=== PATIENT | female | born 1945 | race Caucasian/White ===

== ENCOUNTER 2022-12-02 12:44 | Inpatient (IN) | payer OTHER, MEDICARE ==
[2022-12-02] MEDS ORDERED: ONDANSETRON 4 MG/2 ML VIAL IVPUSH ONE (13:33)
[2022-12-02] MEDS ORDERED: ACETAMINOPHEN 1000 MG/100 ML BAG IVPB ONE (13:33)
[2022-12-02] MEDS ORDERED: LACTATED RINGERS SOLUTION 1000 ML INFUS.BAG IV ONE (13:33)
[2022-12-02] MEDS ORDERED: FAMOTIDINE 20 MG/50 ML IVPB 20 MG/50 ML MG IVPB ONE ×2 (13:34→14:07)
[2022-12-02] MEDS ORDERED: ACETAMINOPHEN INJECTION 100 ML IVPB ONE (14:06)
[2022-12-02] MEDS ORDERED: ONDANSETRON 4 MG/2 ML VIAL ONE (14:06)
[2022-12-02 14:43] LABS: BASO % 0.2 % (0-2.0); EOS % 0.3 % (0-4.5); HEMATOCRIT 37.9 % (32.4-45.2); HEMOGLOBIN 12.8 GM/dL (10.7-15.3); LYMPH % 13.3 % (8-40); MCH 26.6 pg (25.7-33.7); MCHC 33.7 g/dl (32.0-36.0); MEAN CELL VOLUME 78.9 fl (80-96); MEAN PLT VOLUME 8.1 fl (7.5-11.1); MONO % 8.2 % (3.8-10.2); PLATELET COUNT 236 10^3/uL (134-434); RBC 4.81 M/mm3 (3.60-5.2); RDW 15.4 % (11.6-15.6); WHITE BLOOD COUNT 16.5 K/mm3 (4.0-10.0)
[2022-12-02 15:03] LABS: CHLORIDE 80 mmol/L (98-107); POTASSIUM 3.3 mmol/L (3.5-5.1)
[2022-12-02 15:05] LABS: ALBUMIN 3.8 g/dl (3.4-5.0); CALCIUM 8.9 mg/dL (8.5-10.1)
[2022-12-02 15:06] LABS: BLOOD UREA NITROGEN 9.8 mg/dL (7-18); CO2 25 mmol/L (21-32); GLUCOSE,RANDOM 151 mg/dL (74-106); LIPASE 100 U/L (73-393)
[2022-12-02 15:08] LABS: SGPT/ALT 31 U/L (13-61)
[2022-12-02 15:09] LABS: CREATININE 0.6 mg/dL (0.55-1.3); SGOT/AST 24 U/L (15-37)
[2022-12-02 15:10] LABS: BILIRUBIN,TOTAL 1.3 mg/dL (0.2-1); TOT PROT 6.9 g/dl (6.4-8.2)
[2022-12-02 15:11] LABS: ALK PHOS 63 U/L (45-117); ANION GAP 14 MMOL/L (8-16); SODIUM 119 mmol/L (136-145)
[2022-12-02] MEDS ORDERED: HALOPERIDOL LACTATE 5 MG/ML IM ONE ×2 (15:50→16:01)
[2022-12-02 18:32] LABS: CHLORIDE 78 mmol/L (98-107)
[2022-12-02 18:33] LABS: CALCIUM 9.1 mg/dL (8.5-10.1)
[2022-12-02 18:34] LABS: BLOOD UREA NITROGEN 7.4 mg/dL (7-18); CO2 26 mmol/L (21-32); GLUCOSE,RANDOM 128 mg/dL (74-106)
[2022-12-02 18:37] LABS: CREATININE 0.6 mg/dL (0.55-1.3)
[2022-12-02 18:40] LABS: ANION GAP 14 MMOL/L (8-16); POTASSIUM 2.9 mmol/L (3.5-5.1); SODIUM 118 mmol/L (136-145)
[2022-12-02] MEDS ORDERED: SODIUM CHLORIDE 3% 500 ML/500 ML INFUS.BAG IV ONE (18:42)
[2022-12-02] MEDS ORDERED: SODIUM CHLORIDE 0.9% 500 ML INFUS.BAG IV ONE (19:08)
[2022-12-02] MEDS ORDERED: KCL 10 MEQ IVPB 10 MEQ/100 ML INFUS.BAG IVPB ONE (19:31)
[2022-12-02 20:01] LABS: MAGNESIUM 1.5 mg/dL (1.8-2.4)
[2022-12-02] MEDS ORDERED: MAGNESIUM SULF 50% (8.12 MEQ/2 ML-1 GM VIAL) IVPB ONE (20:02)
[2022-12-02] MEDS ORDERED: ACETAMINOPHEN 325 MG TABLET (FP) PO PRN (20:33)
[2022-12-02] MEDS ORDERED: HALOPERIDOL LACTATE 5 MG/ML IM PRN ×2 (21:02→22:34)
[2022-12-02] MEDS ORDERED: MAGNESIUM SULFATE IN WATER 2 GM/50 ML IVPB IVPB ONE (21:02)
[2022-12-02] MEDS ORDERED: hydrALAZINE HCL 20 MG/ML VIAL IVPUSH PRN (22:38)
[2022-12-02] MEDS: KCL 10 MEQ IVPB 10 MEQ/100 ML INFUS.BAG IVPB SCH (22:42)
[2022-12-02] MEDS: INSULIN SLIDING SCALE (NOVOLOG) 1 VIAL SQ SCH (23:08)
[2022-12-03] MEDS: KCL 10 MEQ IVPB 10 MEQ/100 ML INFUS.BAG IVPB SCH ×2 (00:38→03:38)
[2022-12-03] MEDS ORDERED: KCL 10 MEQ IVPB 10 MEQ/100 ML INFUS.BAG IVPB ONE ×2 (00:42→03:36)
[2022-12-03 04:04] LABS: EPI CELLS 10 /uL (0-25.1); HYALINE CASTS 0 /uL (0-3.1); PH,URINE 7.5 (5.0-8.0); URINE APPEARANCE CLEAR; URINE BACTERIA 10 /uL (0-1359); URINE BILIRUBIN NEGATIVE (NEGATIVE); URINE COLOR YELLOW; URINE GLUCOSE (UA) NEGATIVE (NEGATIVE); URINE KETONE 1+ (NEGATIVE); URINE LEUK ESTERASE NEGATIVE (NEGATIVE); URINE NITRITE NEGATIVE (NEGATIVE); URINE PROTEIN 2+ (NEGATIVE); URINE RBC 26 /uL (0-23.9); URINE UROBILINOGEN 0.2 mg/dL (0.2-1.0); URINE WBC 6 /uL (0-25.8)
[2022-12-03 06:02] VITALS: BMI 24.0
[2022-12-03 06:49] LABS: BASO % 0.2 % (0-2.0); EOS % 0.1 % (0-4.5); HEMATOCRIT 41.4 % (32.4-45.2); HEMOGLOBIN 14.5 GM/dL (10.7-15.3); LYMPH % 14.6 % (8-40); MCH 27.4 pg (25.7-33.7); MEAN CELL VOLUME 78.3 fl (80-96); MEAN PLT VOLUME 8.4 fl (7.5-11.1); MONO % 8.7 % (3.8-10.2); NEUT % 76.4 % (42.8-82.8); PLATELET COUNT 262 10^3/uL (134-434); RBC 5.28 M/mm3 (3.60-5.2); RDW 15.3 % (11.6-15.6); WHITE BLOOD COUNT 14.3 K/mm3 (4.0-10.0)
[2022-12-03] MEDS: INSULIN SLIDING SCALE (NOVOLOG) 1 VIAL SQ SCH ×4 (07:01→23:12)
[2022-12-03 07:11] LABS: POTASSIUM 3.5 mmol/L (3.5-5.1)
[2022-12-03 07:13] LABS: CALCIUM 9.2 mg/dL (8.5-10.1)
[2022-12-03 07:14] LABS: BLOOD UREA NITROGEN 5.8 mg/dL (7-18)
[2022-12-03 07:17] LABS: CREATININE 0.6 mg/dL (0.55-1.3); PHOSPHOROUS 2.6 mg/dL (2.5-4.9)
[2022-12-03 07:19] LABS: BILIRUBIN,TOTAL 1.8 mg/dL (0.2-1); TOT PROT 7.2 g/dl (6.4-8.2)
[2022-12-03] MEDS: POTASSIUM CHLORIDE 40 MEQ in SODIUM CHLORIDE 1,000 ML IV SCH ×2 (08:17→08:20)
[2022-12-03] MEDS: predniSONE 10 MG TABLET (UD) PO SCH (09:29)
[2022-12-03] MEDS: ENOXAPARIN NA (PORCINE) 40 MG/0.4 ML DISP.SYRIN SQ SCH (09:29)
[2022-12-03] MEDS ORDERED: D5-NS + 20 MEQ KCL - 20 MEQ/1,000 ML INFUS.BAG IV SCH (13:45)
[2022-12-03 16:02] LABS: BLOOD UREA NITROGEN 6.3 mg/dL (7-18); CALCIUM 8.9 mg/dL (8.5-10.1)
[2022-12-03 16:06] LABS: CREATININE 0.6 mg/dL (0.55-1.3)
[2022-12-03 20:19] LABS: POTASSIUM 4.2 mmol/L (3.5-5.1)
[2022-12-03 20:22] LABS: CALCIUM 8.5 mg/dL (8.5-10.1)
[2022-12-03 20:23] LABS: BLOOD UREA NITROGEN 6.7 mg/dL (7-18)
[2022-12-03 20:25] LABS: CREATININE 0.7 mg/dL (0.55-1.3)
[2022-12-03] MEDS ORDERED: ROSUVASTATIN CA 10 MG TABLET PO SCH (22:00)
[2022-12-03] MEDS ORDERED: EZETIMIBE 10 MG TABLET (FP) PO SCH (22:00)
[2022-12-03] MEDS: amLODIPine BESYLATE 2.5 MG TABLET (FP) PO SCH (23:05)
[2022-12-04] MEDS: INSULIN SLIDING SCALE (NOVOLOG) 1 VIAL SQ SCH ×4 (07:10→22:06)
[2022-12-04] MEDS ORDERED: INSULIN (LEVEMIR) 100 UNITS/ML UNITS SQ ONE (07:25)
[2022-12-04] MEDS ORDERED: INSULIN (NOVOLOG) ASPART 100 UNITS/ML 10ML VIAL ONE ×2 (07:25→17:05)
[2022-12-04 08:50] LABS: BASO % 0.3 % (0-2.0); EOS % 0.4 % (0-4.5); HEMATOCRIT 42.5 % (32.4-45.2); HEMOGLOBIN 14.7 GM/dL (10.7-15.3); LYMPH % 38.3 % (8-40); MCH 27.6 pg (25.7-33.7); MCHC 34.7 g/dl (32.0-36.0); MEAN CELL VOLUME 79.5 fl (80-96); MEAN PLT VOLUME 7.9 fl (7.5-11.1); MONO % 11.1 % (3.8-10.2); NEUT % 49.9 % (42.8-82.8); PLATELET COUNT 254 10^3/uL (134-434); RBC 5.34 M/mm3 (3.60-5.2); RDW 16.1 % (11.6-15.6); WHITE BLOOD COUNT 10.1 K/mm3 (4.0-10.0)
[2022-12-04 09:04] LABS: BLOOD UREA NITROGEN 9.3 mg/dL (7-18)
[2022-12-04 09:06] LABS: PHOSPHOROUS 2.9 mg/dL (2.5-4.9)
[2022-12-04 09:07] LABS: CREATININE 0.7 mg/dL (0.55-1.3)
[2022-12-04 09:39] LABS: ALBUMIN 3.6 g/dl (3.4-5.0); CALCIUM 8.8 mg/dL (8.5-10.1); MAGNESIUM 2.4 mg/dL (1.8-2.4)
[2022-12-04 09:42] LABS: CREATININE 0.8 mg/dL (0.55-1.3)
[2022-12-04 09:44] LABS: BILIRUBIN,TOTAL 1.8 mg/dL (0.2-1); TOT PROT 6.8 g/dl (6.4-8.2)
[2022-12-04] MEDS: ENOXAPARIN NA (PORCINE) 40 MG/0.4 ML DISP.SYRIN SQ SCH (09:49)
[2022-12-04] MEDS: predniSONE 10 MG TABLET (UD) PO SCH ×2 (09:49→09:52)
[2022-12-04] MEDS ORDERED: DEXTROSE 5%-WATER - 1,000 ML with POTASSIUM CHLORIDE 10 MEQ IV SCH (12:00)
[2022-12-04 17:17] LABS: POTASSIUM 4.1 mmol/L (3.5-5.1)
[2022-12-04 17:18] LABS: BLOOD UREA NITROGEN 10.9 mg/dL (7-18); CALCIUM 8.7 mg/dL (8.5-10.1)
[2022-12-04 17:22] LABS: CREATININE 0.8 mg/dL (0.55-1.3)
[2022-12-04] MEDS: amLODIPine BESYLATE 2.5 MG TABLET (FP) PO SCH (22:03)
[2022-12-05] MEDS: INSULIN SLIDING SCALE (NOVOLOG) 1 VIAL SQ SCH ×4 (06:28→22:02)
[2022-12-05 07:08] LABS: BASO % 0.4 % (0-2.0); EOS % 0.3 % (0-4.5); HEMOGLOBIN 13.9 GM/dL (10.7-15.3); LYMPH % 20.4 % (8-40); MCH 27.7 pg (25.7-33.7); MEAN CELL VOLUME 81.4 fl (80-96); MONO % 11.1 % (3.8-10.2); NEUT % 67.8 % (42.8-82.8); PLATELET COUNT 207 10^3/uL (134-434); RBC 5.04 M/mm3 (3.60-5.2); RDW 16.1 % (11.6-15.6); WHITE BLOOD COUNT 8.9 K/mm3 (4.0-10.0)
[2022-12-05 07:22] LABS: POTASSIUM 3.7 mmol/L (3.5-5.1)
[2022-12-05 07:25] LABS: BLOOD UREA NITROGEN 11.9 mg/dL (7-18); CALCIUM 8.5 mg/dL (8.5-10.1)
[2022-12-05 07:26] LABS: ALBUMIN 3.4 g/dl (3.4-5.0); MAGNESIUM 1.9 mg/dL (1.8-2.4)
[2022-12-05 07:28] LABS: PHOSPHOROUS 2.2 mg/dL (2.5-4.9)
[2022-12-05 07:29] LABS: CREATININE 0.7 mg/dL (0.55-1.3)
[2022-12-05 07:30] LABS: BILIRUBIN,TOTAL 1.6 mg/dL (0.2-1); TOT PROT 6.4 g/dl (6.4-8.2)
[2022-12-05] MEDS: predniSONE 10 MG TABLET (UD) PO SCH (09:35)
[2022-12-05] MEDS: ENOXAPARIN NA (PORCINE) 40 MG/0.4 ML DISP.SYRIN SQ SCH (09:37)
[2022-12-05 13:27] LABS: POTASSIUM 3.9 mmol/L (3.5-5.1)
[2022-12-05 13:29] LABS: CALCIUM 9.1 mg/dL (8.5-10.1)
[2022-12-05 13:30] LABS: BLOOD UREA NITROGEN 12.1 mg/dL (7-18)
[2022-12-05 13:34] LABS: CREATININE 0.7 mg/dL (0.55-1.3)
[2022-12-05] MEDS ORDERED: POLYETHYLENE GLYCOL (HEALTHYLAX) 3350 17 GM PACKET PO SCH (14:15)
[2022-12-05] MEDS ORDERED: INSULIN (NOVOLOG) ASPART 100 UNITS/ML 10ML VIAL ONE (16:45)
[2022-12-05 18:50] VITALS: RESP 18
[2022-12-05] MEDS: POLYETHYLENE GLYCOL (HEALTHYLAX) 3350 17 GM PACKET PO SCH (21:55)
[2022-12-05] MEDS: amLODIPine BESYLATE 2.5 MG TABLET (FP) PO SCH (21:55)
[2022-12-06] MEDS: INSULIN SLIDING SCALE (NOVOLOG) 1 VIAL SQ SCH ×3 (06:27→17:14)
[2022-12-06 08:12] LABS: BASO % 0.4 % (0-2.0); EOS % 1.1 % (0-4.5); HEMATOCRIT 39.8 % (32.4-45.2); HEMOGLOBIN 13.5 GM/dL (10.7-15.3); LYMPH % 24.2 % (8-40); MCH 27.4 pg (25.7-33.7); MCHC 33.8 g/dl (32.0-36.0); MEAN CELL VOLUME 81.2 fl (80-96); MEAN PLT VOLUME 8.2 fl (7.5-11.1); MONO % 10.5 % (3.8-10.2); NEUT % 63.8 % (42.8-82.8); PLATELET COUNT 189 10^3/uL (134-434); WHITE BLOOD COUNT 10.6 K/mm3 (4.0-10.0)
[2022-12-06 08:23] LABS: POTASSIUM 3.8 mmol/L (3.5-5.1)
[2022-12-06 08:32] LABS: CALCIUM 8.8 mg/dL (8.5-10.1)
[2022-12-06 08:33] LABS: ALBUMIN 3.2 g/dl (3.4-5.0); BLOOD UREA NITROGEN 12.9 mg/dL (7-18); MAGNESIUM 2.1 mg/dL (1.8-2.4)
[2022-12-06 08:36] LABS: CREATININE 0.6 mg/dL (0.55-1.3); PHOSPHOROUS 2.8 mg/dL (2.5-4.9)
[2022-12-06 08:38] LABS: BILIRUBIN,TOTAL 0.8 mg/dL (0.2-1); TOT PROT 6.2 g/dl (6.4-8.2)
[2022-12-06] MEDS: POLYETHYLENE GLYCOL (HEALTHYLAX) 3350 17 GM PACKET PO SCH (10:21)
[2022-12-06] MEDS: ENOXAPARIN NA (PORCINE) 40 MG/0.4 ML DISP.SYRIN SQ SCH (10:21)
[2022-12-06] MEDS: predniSONE 10 MG TABLET (UD) PO SCH (10:21)
[2022-12-06 14:54] VITALS: BP 131/63; PULSE 70; TEMP 97.7
== END 2022-12-06 18:24 | disposition home health service (06) | DRG 640 ==
LOC: JER 12:44 → JERBED 19:20 → J4W 12-03 04:47
PROVIDERS: ADMIT Internal Medicine; ATTEND Internal Medicine
DX: E87.1 Hypo-osmolality and hyponatremia (principal); G93.41 Metabolic encephalopathy; J98.11 Atelectasis; E78.5 Hyperlipidemia, unspecified; E11.40 Type 2 diabetes mellitus with diabetic neuropathy, unspecified; I45.10 Unspecified right bundle-branch block; R11.2 Nausea with vomiting, unspecified; E87.6 Hypokalemia; K57.90 Diverticulosis of intestine, part unspecified, without perforation or abscess without bleeding; E83.42 Hypomagnesemia; D72.829 Elevated white blood cell count, unspecified; M19.09 Primary osteoarthritis, other specified site; I25.10 Atherosclerotic heart disease of native coronary artery without angina pectoris; R33.9 Retention of urine, unspecified; E86.0 Dehydration; M35.3 Polymyalgia rheumatica; I10 Essential (primary) hypertension; E80.6 Other disorders of bilirubin metabolism; Z95.1 Presence of aortocoronary bypass graft
CPT/HCPCS: 36415; 70450-TC; 71045-TC-FY; 74177-TC; 76705-TC; 80048; 80053; 81003; 82436; 82533; 82570; 82962; 83036; 83605; 83690; 83735; 83930; 83935; 84100; 84156; 84300; 84439; 84443; 84484; 84540; 85025; 87086; 93005; 93010; 97116-GP; 97162-GP; 99285-25; Q9967

== ENCOUNTER 2023-06-02 15:09 | Inpatient (IN) | payer OTHER, MEDICARE ==
[2023-06-02 16:06] LABS: EOS % 0.5 % (0-4.5); HEMATOCRIT 34.5 % (32.4-45.2); HEMOGLOBIN 11.3 GM/dL (10.7-15.3); LYMPH % 20.3 % (8-40); MCHC 32.9 g/dl (32.0-36.0); MEAN CELL VOLUME 82.2 fl (80-96); MEAN PLT VOLUME 8.2 fl (7.5-11.1); MONO % 15.4 % (3.8-10.2); NEUT % 63.8 % (42.8-82.8); PLATELET COUNT 232 10^3/uL (134-434); RDW 14.7 % (11.6-15.6); WHITE BLOOD COUNT 10.6 K/mm3 (4.0-10.0)
[2023-06-02 16:11] LABS: VENOUS BASE EXCESS 1.8 mmol/L (-2-2); VENOUS O2 SATURATION 81.4 % (70-80); VENOUS PCO2 39.2 mmHg (38-52); VENOUS PH 7.439 (7.310-7.410)
[2023-06-02 16:24] LABS: CHLORIDE 101 mmol/L (98-107); POTASSIUM 3.6 mmol/L (3.5-5.1); SODIUM 136 mmol/L (136-145)
[2023-06-02 16:26] LABS: ALBUMIN 3.6 g/dl (3.4-5.0); ANION GAP 9 mmol/L (4-13); BLOOD UREA NITROGEN 16.4 mg/dL (7-18); CALCIUM 9.4 mg/dL (8.5-10.1); CO2 26 mmol/L (21-32); GLUCOSE,RANDOM 158 mg/dL (74-106)
[2023-06-02 16:29] LABS: CREATININE 0.6 mg/dL (0.55-1.3); SGOT/AST 33 U/L (15-37); SGPT/ALT 61 U/L (13-61)
[2023-06-02 16:31] LABS: BILIRUBIN,TOTAL 0.6 mg/dL (0.2-1); TOT PROT 6.9 g/dl (6.4-8.2)
[2023-06-02 16:32] LABS: ALK PHOS 60 U/L (45-117)
[2023-06-02 17:23] LABS: MAGNESIUM 1.9 mg/dL (1.8-2.4)
[2023-06-02 18:09] LABS: ARTERIAL BLD GAS O2 SATURATION 95.6 % (95-98); ARTERIAL BLOOD GAS BASE EXCESS 1.8 mmol/L (-2-2); ARTERIAL BLOOD GAS PO2 72.3 mmHg (80-100); ARTERIAL BLOOD GAS pH 7.475 (7.350-7.450)
[2023-06-02 18:17] LABS: ALLENS TEST POSITIVE
[2023-06-02 18:28] LABS: URINE APPEARANCE CLEAR; URINE BILIRUBIN NEGATIVE (NEGATIVE); URINE COLOR YELLOW; URINE GLUCOSE (UA) NEGATIVE (NEGATIVE); URINE KETONE NEGATIVE (NEGATIVE); URINE LEUK ESTERASE NEGATIVE (NEGATIVE); URINE NITRITE NEGATIVE (NEGATIVE); URINE PROTEIN NEGATIVE (NEGATIVE); URINE UROBILINOGEN 0.2 mg/dL (0.2-1.0)
[2023-06-02] MEDS: INSULIN ASPART SLIDING SCALE (NOVOLOG) 1 VIAL SQ SCH (21:13)
[2023-06-03] MEDS ORDERED: MECLIZINE HCL 25 MG TABLET (FP) PO PRN (01:24)
[2023-06-03 07:03] LABS: BASO % 0.7 % (0-2.0); EOS % 0.7 % (0-4.5); HEMATOCRIT 34.1 % (32.4-45.2); HEMOGLOBIN 11.3 GM/dL (10.7-15.3); LYMPH % 18.5 % (8-40); MCH 27.1 pg (25.7-33.7); MCHC 33.1 g/dl (32.0-36.0); MEAN CELL VOLUME 81.9 fl (80-96); MEAN PLT VOLUME 8.3 fl (7.5-11.1); MONO % 17.7 % (3.8-10.2); NEUT % 62.4 % (42.8-82.8); PLATELET COUNT 240 10^3/uL (134-434); RBC 4.17 M/mm3 (3.60-5.2); RDW 14.9 % (11.6-15.6); WHITE BLOOD COUNT 11.3 K/mm3 (4.0-10.0)
[2023-06-03 08:05] LABS: ALBUMIN 3.4 g/dl (3.4-5.0); BILIRUBIN,TOTAL 0.7 mg/dL (0.2-1); BLOOD UREA NITROGEN 11.6 mg/dL (7-18); CALCIUM 9.1 mg/dL (8.5-10.1); CREATININE 0.4 mg/dL (0.55-1.3); MAGNESIUM 1.8 mg/dL (1.8-2.4); PHOSPHOROUS 3.3 mg/dL (2.5-4.9); POTASSIUM 3.6 mmol/L (3.5-5.1); TOT PROT 6.5 g/dl (6.4-8.2)
[2023-06-03] MEDS: EZETIMIBE 10 MG TABLET (FP) PO SCH (09:20)
[2023-06-03] MEDS: INSULIN ASPART SLIDING SCALE (NOVOLOG) 1 VIAL SQ SCH ×3 (09:20→16:55)
[2023-06-03] MEDS: amLODIPine BESYLATE 2.5 MG TABLET (FP) PO SCH (09:20)
[2023-06-03] MEDS: GABAPENTIN 100 MG CAPSULE PO SCH ×2 (09:36→22:22)
[2023-06-03] MEDS ORDERED: INSULIN (NOVOLOG) ASPART 100 UNITS/ML 10ML VIAL ONE (16:49)
[2023-06-03] MEDS: predniSONE 5 MG TABLET (UD) PO SCH (16:53)
[2023-06-03] MEDS ORDERED: INSULIN (LEVEMIR) 100 UNITS/ML UNITS SQ SCH (22:00)
[2023-06-03] MEDS: ROSUVASTATIN CA 10 MG TABLET PO SCH (22:21)
[2023-06-03] MEDS: DONEPEZIL HCL 5 MG TABLET (FP) PO SCH (22:21)
[2023-06-03] MEDS: INSULIN (LEVEMIR) 100 UNITS/ML UNITS SQ SCH (22:22)
[2023-06-03] MEDS: MIRTAZAPINE 15 MG TABLET (FP) PO SCH (22:22)
[2023-06-04] MEDS: INSULIN ASPART SLIDING SCALE (NOVOLOG) 1 VIAL SQ SCH ×3 (06:04→18:08)
[2023-06-04] MEDS: EZETIMIBE 10 MG TABLET (FP) PO SCH (06:12)
[2023-06-04 09:44] LABS: BASO % 0.8 % (0-2.0); EOS % 0.6 % (0-4.5); HEMATOCRIT 35.6 % (32.4-45.2); HEMOGLOBIN 12.1 GM/dL (10.7-15.3); LYMPH % 21.8 % (8-40); MCH 27.6 pg (25.7-33.7); MCHC 33.9 g/dl (32.0-36.0); MEAN CELL VOLUME 81.5 fl (80-96); MEAN PLT VOLUME 8.1 fl (7.5-11.1); MONO % 15.4 % (3.8-10.2); NEUT % 61.4 % (42.8-82.8); PLATELET COUNT 271 10^3/uL (134-434); RBC 4.36 M/mm3 (3.60-5.2); RDW 14.6 % (11.6-15.6); WHITE BLOOD COUNT 10.1 K/mm3 (4.0-10.0)
[2023-06-04 10:07] LABS: POTASSIUM 3.6 mmol/L (3.5-5.1)
[2023-06-04 10:10] LABS: CALCIUM 9.3 mg/dL (8.5-10.1)
[2023-06-04 10:11] LABS: ALBUMIN 3.3 g/dl (3.4-5.0); BLOOD UREA NITROGEN 15.6 mg/dL (7-18)
[2023-06-04 10:14] LABS: CREATININE 0.5 mg/dL (0.55-1.3)
[2023-06-04 10:16] LABS: BILIRUBIN,TOTAL 0.8 mg/dL (0.2-1); TOT PROT 6.8 g/dl (6.4-8.2)
[2023-06-04] MEDS: predniSONE 5 MG TABLET (UD) PO SCH (10:53)
[2023-06-04] MEDS: amLODIPine BESYLATE 2.5 MG TABLET (FP) PO SCH (10:53)
[2023-06-04] MEDS: GABAPENTIN 100 MG CAPSULE PO SCH ×2 (10:53→21:56)
[2023-06-04] MEDS ORDERED: QUEtiapine FUMARATE 25 MG TABLET PO ONE (12:41)
[2023-06-04] MEDS: ACETAMINOPHEN 325 MG TABLET (FP) PO PRN (18:13)
[2023-06-04] MEDS: DONEPEZIL HCL 5 MG TABLET (FP) PO SCH (21:56)
[2023-06-04] MEDS: ROSUVASTATIN CA 10 MG TABLET PO SCH (21:56)
[2023-06-04] MEDS: MIRTAZAPINE 15 MG TABLET (FP) PO SCH (21:56)
[2023-06-04] MEDS: QUEtiapine FUMARATE 25 MG TABLET PO SCH (21:56)
[2023-06-04] MEDS: INSULIN (LEVEMIR) 100 UNITS/ML UNITS SQ SCH (21:56)
[2023-06-04] MEDS: FLUTICASONE PROP 0.05% 16 GM NASAL SPRAY NS SCH (22:00)
[2023-06-05] MEDS: INSULIN ASPART SLIDING SCALE (NOVOLOG) 1 VIAL SQ SCH ×3 (06:22→17:05)
[2023-06-05] MEDS: EZETIMIBE 10 MG TABLET (FP) PO SCH (06:22)
[2023-06-05] MEDS: ACETAMINOPHEN 325 MG TABLET (FP) PO PRN ×3 (06:24→22:14)
[2023-06-05] MEDS ORDERED: ENOXAPARIN NA (PORCINE) 40 MG/0.4 ML DISP.SYRIN SQ SCH (10:00)
[2023-06-05] MEDS ORDERED: ENOXAPARIN NA (PORCINE) 30 MG/0.3 ML DISP.SYRIN SQ SCH (10:00)
[2023-06-05] MEDS: ENOXAPARIN NA (PORCINE) 30 MG/0.3 ML DISP.SYRIN SQ SCH (10:22)
[2023-06-05] MEDS: amLODIPine BESYLATE 2.5 MG TABLET (FP) PO SCH (10:22)
[2023-06-05] MEDS: predniSONE 5 MG TABLET (UD) PO SCH (10:22)
[2023-06-05] MEDS: GABAPENTIN 100 MG CAPSULE PO SCH ×2 (10:22→22:14)
[2023-06-05] MEDS: QUEtiapine FUMARATE 25 MG TABLET PO SCH ×2 (10:22→22:16)
[2023-06-05] MEDS: FLUTICASONE PROP 0.05% 16 GM NASAL SPRAY NS SCH ×2 (10:23→22:15)
[2023-06-05] MEDS: ROSUVASTATIN CA 10 MG TABLET PO SCH (22:14)
[2023-06-05] MEDS: MEMANTINE HCL 10 MG TABLET (FP) PO SCH (22:14)
[2023-06-05] MEDS: INSULIN (LEVEMIR) 100 UNITS/ML UNITS SQ SCH (22:15)
[2023-06-06] MEDS: EZETIMIBE 10 MG TABLET (FP) PO SCH (06:25)
[2023-06-06] MEDS: INSULIN ASPART SLIDING SCALE (NOVOLOG) 1 VIAL SQ SCH ×3 (06:25→17:01)
[2023-06-06] MEDS: GABAPENTIN 100 MG CAPSULE PO SCH ×2 (09:11→22:28)
[2023-06-06] MEDS: MEMANTINE HCL 10 MG TABLET (FP) PO SCH ×2 (09:11→22:28)
[2023-06-06] MEDS: amLODIPine BESYLATE 2.5 MG TABLET (FP) PO SCH (09:11)
[2023-06-06] MEDS: QUEtiapine FUMARATE 25 MG TABLET PO SCH ×2 (09:11→22:28)
[2023-06-06] MEDS: predniSONE 5 MG TABLET (UD) PO SCH (09:11)
[2023-06-06] MEDS: ENOXAPARIN NA (PORCINE) 30 MG/0.3 ML DISP.SYRIN SQ SCH (09:11)
[2023-06-06] MEDS: FLUTICASONE PROP 0.05% 16 GM NASAL SPRAY NS SCH ×2 (09:12→22:29)
[2023-06-06] MEDS ORDERED: INSULIN (NOVOLOG) ASPART 100 UNITS/ML 10ML VIAL ONE ×2 (11:20→16:56)
[2023-06-06] MEDS: ROSUVASTATIN CA 10 MG TABLET PO SCH (22:28)
[2023-06-06] MEDS: INSULIN (LEVEMIR) 100 UNITS/ML UNITS SQ SCH (22:28)
[2023-06-06] MEDS: ACETAMINOPHEN 325 MG TABLET (FP) PO PRN (22:30)
[2023-06-07] MEDS: INSULIN ASPART SLIDING SCALE (NOVOLOG) 1 VIAL SQ SCH ×3 (06:29→17:32)
[2023-06-07] MEDS: EZETIMIBE 10 MG TABLET (FP) PO SCH (06:29)
[2023-06-07] MEDS: ENOXAPARIN NA (PORCINE) 30 MG/0.3 ML DISP.SYRIN SQ SCH (11:00)
[2023-06-07] MEDS: amLODIPine BESYLATE 2.5 MG TABLET (FP) PO SCH (11:00)
[2023-06-07] MEDS: MEMANTINE HCL 10 MG TABLET (FP) PO SCH ×2 (11:00→22:04)
[2023-06-07] MEDS: GABAPENTIN 100 MG CAPSULE PO SCH ×2 (11:00→22:03)
[2023-06-07] MEDS: predniSONE 5 MG TABLET (UD) PO SCH (11:00)
[2023-06-07] MEDS: QUEtiapine FUMARATE 25 MG TABLET PO SCH ×2 (11:00→22:03)
[2023-06-07] MEDS: ACETAMINOPHEN 325 MG TABLET (FP) PO PRN ×2 (11:11→17:33)
[2023-06-07] MEDS: FLUTICASONE PROP 0.05% 16 GM NASAL SPRAY NS SCH ×2 (11:12→22:04)
[2023-06-07] MEDS: ROSUVASTATIN CA 10 MG TABLET PO SCH (22:03)
[2023-06-07] MEDS: INSULIN (LEVEMIR) 100 UNITS/ML UNITS SQ SCH (22:14)
[2023-06-08] MEDS: ACETAMINOPHEN 325 MG TABLET (FP) PO PRN ×2 (01:26→11:26)
[2023-06-08] MEDS: EZETIMIBE 10 MG TABLET (FP) PO SCH (07:30)
[2023-06-08] MEDS: INSULIN ASPART SLIDING SCALE (NOVOLOG) 1 VIAL SQ SCH ×3 (07:30→17:18)
[2023-06-08] MEDS ORDERED: INSULIN (NOVOLOG) ASPART 100 UNITS/ML 10ML VIAL ONE (11:20)
[2023-06-08] MEDS: ENOXAPARIN NA (PORCINE) 30 MG/0.3 ML DISP.SYRIN SQ SCH (11:25)
[2023-06-08] MEDS: GABAPENTIN 100 MG CAPSULE PO SCH ×2 (11:26→22:33)
[2023-06-08] MEDS: amLODIPine BESYLATE 2.5 MG TABLET (FP) PO SCH (11:26)
[2023-06-08] MEDS: MEMANTINE HCL 10 MG TABLET (FP) PO SCH ×2 (11:26→22:33)
[2023-06-08] MEDS: QUEtiapine FUMARATE 25 MG TABLET PO SCH ×2 (11:26→22:33)
[2023-06-08] MEDS: predniSONE 5 MG TABLET (UD) PO SCH (11:26)
[2023-06-08] MEDS: FLUTICASONE PROP 0.05% 16 GM NASAL SPRAY NS SCH ×2 (11:27→22:31)
[2023-06-08] MEDS ORDERED: INSULIN (LEVEMIR) 100 UNITS/ML UNITS SQ ONE (22:30)
[2023-06-08] MEDS: ROSUVASTATIN CA 10 MG TABLET PO SCH (22:33)
[2023-06-08] MEDS: INSULIN (LEVEMIR) 100 UNITS/ML UNITS SQ SCH (22:34)
[2023-06-09] MEDS: EZETIMIBE 10 MG TABLET (FP) PO SCH (06:13)
[2023-06-09] MEDS: INSULIN ASPART SLIDING SCALE (NOVOLOG) 1 VIAL SQ SCH ×3 (06:15→18:18)
[2023-06-09] MEDS: ACETAMINOPHEN 325 MG TABLET (FP) PO PRN (06:17)
[2023-06-09 07:54] LABS: POTASSIUM 4.1 mmol/L (3.5-5.1)
[2023-06-09 07:55] LABS: CALCIUM 9.9 mg/dL (8.5-10.1)
[2023-06-09 07:56] LABS: BLOOD UREA NITROGEN 12.7 mg/dL (7-18)
[2023-06-09 07:58] LABS: HEMOGLOBIN 11.9 GM/dL (10.7-15.3); MCH 27.1 pg (25.7-33.7); MEAN CELL VOLUME 82.3 fl (80-96); MEAN PLT VOLUME 7.9 fl (7.5-11.1); PLATELET COUNT 345 10^3/uL (134-434); RBC 4.38 M/mm3 (3.60-5.2); RDW 14.7 % (11.6-15.6); WHITE BLOOD COUNT 12.7 K/mm3 (4.0-10.0)
[2023-06-09 07:59] LABS: CREATININE 0.5 mg/dL (0.55-1.3)
[2023-06-09] MEDS: MEMANTINE HCL 10 MG TABLET (FP) PO SCH ×2 (11:19→22:50)
[2023-06-09] MEDS: ENOXAPARIN NA (PORCINE) 30 MG/0.3 ML DISP.SYRIN SQ SCH (11:20)
[2023-06-09] MEDS: QUEtiapine FUMARATE 25 MG TABLET PO SCH ×2 (11:20→22:50)
[2023-06-09] MEDS: FLUTICASONE PROP 0.05% 16 GM NASAL SPRAY NS SCH ×2 (11:20→22:50)
[2023-06-09] MEDS: predniSONE 5 MG TABLET (UD) PO SCH (11:20)
[2023-06-09] MEDS: amLODIPine BESYLATE 2.5 MG TABLET (FP) PO SCH (11:20)
[2023-06-09] MEDS: GABAPENTIN 100 MG CAPSULE PO SCH ×2 (11:20→22:50)
[2023-06-09] MEDS ORDERED: INSULIN (NOVOLOG) ASPART 100 UNITS/ML 10ML VIAL ONE (11:33)
[2023-06-09] MEDS: INSULIN (LEVEMIR) 100 UNITS/ML UNITS SQ SCH (22:50)
[2023-06-09] MEDS: ROSUVASTATIN CA 10 MG TABLET PO SCH (22:50)
[2023-06-10] MEDS: EZETIMIBE 10 MG TABLET (FP) PO SCH (07:10)
[2023-06-10] MEDS: INSULIN ASPART SLIDING SCALE (NOVOLOG) 1 VIAL SQ SCH ×3 (07:10→16:28)
[2023-06-10 08:42] LABS: BASO % 0.4 % (0-2.0); EOS % 1.5 % (0-4.5); HEMATOCRIT 35.9 % (32.4-45.2); LYMPH % 31.2 % (8-40); MCH 27.3 pg (25.7-33.7); MCHC 33.4 g/dl (32.0-36.0); MEAN CELL VOLUME 81.6 fl (80-96); MEAN PLT VOLUME 7.5 fl (7.5-11.1); MONO % 9.8 % (3.8-10.2); NEUT % 57.1 % (42.8-82.8); PLATELET COUNT 380 10^3/uL (134-434); RDW 14.8 % (11.6-15.6); WHITE BLOOD COUNT 11.5 K/mm3 (4.0-10.0)
[2023-06-10 08:58] LABS: POTASSIUM 3.7 mmol/L (3.5-5.1)
[2023-06-10 09:04] LABS: CALCIUM 9.6 mg/dL (8.5-10.1)
[2023-06-10 09:05] LABS: ALBUMIN 3.6 g/dl (3.4-5.0); BLOOD UREA NITROGEN 11.9 mg/dL (7-18); MAGNESIUM 2.1 mg/dL (1.8-2.4)
[2023-06-10 09:08] LABS: CREATININE 0.5 mg/dL (0.55-1.3)
[2023-06-10 09:09] LABS: BILIRUBIN,TOTAL 0.6 mg/dL (0.2-1)
[2023-06-10 09:10] LABS: TOT PROT 7.2 g/dl (6.4-8.2)
[2023-06-10] MEDS: QUEtiapine FUMARATE 25 MG TABLET PO SCH ×2 (10:38→22:21)
[2023-06-10] MEDS: GABAPENTIN 100 MG CAPSULE PO SCH ×2 (10:38→22:21)
[2023-06-10] MEDS: ENOXAPARIN NA (PORCINE) 30 MG/0.3 ML DISP.SYRIN SQ SCH (10:39)
[2023-06-10] MEDS: FLUTICASONE PROP 0.05% 16 GM NASAL SPRAY NS SCH ×2 (10:39→22:21)
[2023-06-10] MEDS: MEMANTINE HCL 10 MG TABLET (FP) PO SCH ×2 (10:39→22:21)
[2023-06-10] MEDS: amLODIPine BESYLATE 2.5 MG TABLET (FP) PO SCH (10:39)
[2023-06-10] MEDS: predniSONE 5 MG TABLET (UD) PO SCH (10:39)
[2023-06-10] MEDS: ROSUVASTATIN CA 10 MG TABLET PO SCH (22:21)
[2023-06-10] MEDS: INSULIN (LEVEMIR) 100 UNITS/ML UNITS SQ SCH (22:22)
[2023-06-11] MEDS: INSULIN ASPART SLIDING SCALE (NOVOLOG) 1 VIAL SQ SCH ×3 (06:29→15:59)
[2023-06-11] MEDS: EZETIMIBE 10 MG TABLET (FP) PO SCH (06:30)
[2023-06-11 08:25] LABS: CALCIUM 9.9 mg/dL (8.5-10.1)
[2023-06-11 08:26] LABS: ALBUMIN 3.3 g/dl (3.4-5.0); BLOOD UREA NITROGEN 15.1 mg/dL (7-18)
[2023-06-11 08:29] LABS: CREATININE 0.6 mg/dL (0.55-1.3); PHOSPHOROUS 3.9 mg/dL (2.5-4.9)
[2023-06-11 08:30] LABS: TOT PROT 7.1 g/dl (6.4-8.2)
[2023-06-11 08:31] LABS: BILIRUBIN,TOTAL 0.3 mg/dL (0.2-1)
[2023-06-11 08:39] LABS: BASO % 0.7 % (0-2.0); EOS % 2.2 % (0-4.5); HEMATOCRIT 36.2 % (32.4-45.2); HEMOGLOBIN 12.4 GM/dL (10.7-15.3); LYMPH % 33.6 % (8-40); MCH 27.7 pg (25.7-33.7); MCHC 34.3 g/dl (32.0-36.0); MEAN CELL VOLUME 80.7 fl (80-96); MEAN PLT VOLUME 7.6 fl (7.5-11.1); NEUT % 53.5 % (42.8-82.8); PLATELET COUNT 382 10^3/uL (134-434); RBC 4.49 M/mm3 (3.60-5.2); RDW 14.8 % (11.6-15.6)
[2023-06-11] MEDS: GABAPENTIN 100 MG CAPSULE PO SCH ×2 (10:03→21:30)
[2023-06-11] MEDS: MEMANTINE HCL 10 MG TABLET (FP) PO SCH ×2 (10:03→21:30)
[2023-06-11] MEDS: predniSONE 5 MG TABLET (UD) PO SCH (10:03)
[2023-06-11] MEDS: QUEtiapine FUMARATE 25 MG TABLET PO SCH ×2 (10:03→21:30)
[2023-06-11] MEDS: ENOXAPARIN NA (PORCINE) 30 MG/0.3 ML DISP.SYRIN SQ SCH (10:04)
[2023-06-11] MEDS: amLODIPine BESYLATE 2.5 MG TABLET (FP) PO SCH (10:04)
[2023-06-11] MEDS: FLUTICASONE PROP 0.05% 16 GM NASAL SPRAY NS SCH ×2 (10:04→21:31)
[2023-06-11] MEDS ORDERED: INSULIN (NOVOLOG) ASPART 100 UNITS/ML 10ML VIAL ONE ×2 (11:07→17:29)
[2023-06-11 13:09] VITALS: RESP 18
[2023-06-11] MEDS: ROSUVASTATIN CA 10 MG TABLET PO SCH (21:30)
[2023-06-11] MEDS: INSULIN (LEVEMIR) 100 UNITS/ML UNITS SQ SCH (21:30)
[2023-06-12] MEDS: EZETIMIBE 10 MG TABLET (FP) PO SCH (06:10)
[2023-06-12] MEDS: INSULIN ASPART SLIDING SCALE (NOVOLOG) 1 VIAL SQ SCH ×3 (06:11→17:56)
[2023-06-12] MEDS: amLODIPine BESYLATE 2.5 MG TABLET (FP) PO SCH (10:51)
[2023-06-12] MEDS: predniSONE 5 MG TABLET (UD) PO SCH (10:51)
[2023-06-12] MEDS: GABAPENTIN 100 MG CAPSULE PO SCH (10:51)
[2023-06-12] MEDS: MEMANTINE HCL 10 MG TABLET (FP) PO SCH (10:51)
[2023-06-12] MEDS: QUEtiapine FUMARATE 25 MG TABLET PO SCH (10:51)
[2023-06-12] MEDS: FLUTICASONE PROP 0.05% 16 GM NASAL SPRAY NS SCH (10:51)
[2023-06-12 13:45] VITALS: BP 106/60; PULSE 70; TEMP 97.9
[2023-06-12 22:48] VITALS: BMI 19.9
== END 2023-06-12 18:50 | DRG 57 ==
LOC: JER 15:09 → JERBED 20:16 → INTOOBSV 20:16 → UNDOADMOB 20:16 → JERBED 06-03 11:04 → J7W 06-03 13:42 → JERBED 06-03 13:42 → OBSVTOIN 06-04 14:24 → INTOOBSV 06-04 14:24 → JERBED 06-06 10:18 → J7W 06-06 10:18 → OBSVTOIN 06-06 18:50
PROVIDERS: ADMIT Internal Medicine; ATTEND Nurse Practitioner Acute Care
DX: G30.9 Alzheimer's disease, unspecified (principal); F02.818 Dementia in other diseases classified elsewhere, unspecified severity, with other behavioral disturbance; I10 Essential (primary) hypertension; E78.5 Hyperlipidemia, unspecified; E11.40 Type 2 diabetes mellitus with diabetic neuropathy, unspecified; M06.9 Rheumatoid arthritis, unspecified; M50.30 Other cervical disc degeneration, unspecified cervical region; Z95.1 Presence of aortocoronary bypass graft
CPT/HCPCS: 0241U-QW; 36415; 36600; 70450-TC; 71045-TC-FY; 72125-TC; 72170-TC-FY; 80048; 80053; 80307; 81003; 82803; 82962; 83036; 83735; 84100; 84484; 85025; 85027; 87086; 93005; 93010; 97116-GP; 97161-GP; 99285-25; G0378